=== PATIENT | male | born 1960 | race Caucasian/White ===

== ENCOUNTER 2023-02-25 16:32 | Emergency (ER) | payer MEDICARE, MEDICAID, SELFPAY ==
--- NOTE | ~2023-02-25 | CT_ITS ---
EXAMINATION: CT CERVICAL SPINE WITHOUT CONTRAST CLINICAL INFORMATION: Neck trauma. COMPARISON: None available. TECHNIQUE: 3 minutes thin axial and reformatted 2 mm thin sagittal coronal images of cervical spine were obtained without contrast. This CT examination was performed using dose optimization techniques as appropriate, variously including the following: *Automated exposure control *Adjustment of mA and/or kV according to patient size (this includes techniques or standardized protocols for targeted exams where dose is matched to indication/reason for exam; i.e. extremities or head) *Use of iterative reconstruction technique DLP: 367 mGy-cm FINDINGS: On sagittal reconstructed images there is maintained cervical lordosis. The vertebral heights, alignment and disc heights are normal. The craniovertebral junction and C1-C2 alignment is normal. There are subchondral cystic changes at the C1-C2 alignment. The lung apices are clear. The airway is widely patent. Thyroid lobes are symmetrical and normal. No abnormal neck mass or lymphadenopathy seen. There is bilateral common carotid and internal carotid artery calcifications. CT/CT cervical spine wo IV con IMPRESSION: Unremarkable CT cervical spine without any visible fracture or dislocation. Fleischner guidelines were followed.
--- NOTE | ~2023-02-25 | CT_ITS ---
EXAMINATION: CT HEAD WITHOUT CONTRAST CLINICAL INFORMATION: Fall. COMPARISON: None available. TECHNIQUE: Contiguous axial imaging was performed from the skull base to vertex without intravenous administration of contrast. This CT examination was performed using dose optimization techniques as appropriate, variously including the following: *Automated exposure control *Adjustment of mA and/or kV according to patient size (this includes techniques or standardized protocols for targeted exams where dose is matched to indication/reason for exam; i.e. extremities or head) *Use of iterative reconstruction technique DLP: 710 mGy-cm FINDINGS: There is no acute intra-axial, extra-axial bleed, masses or midline shift. There is no acute infarction evolution. There is no edema. There is a small lacunar infarct left basal ganglia of unknown age. The asher to white matter difference is maintained normal. Lateral ventricles are symmetrical in size and configuration without enlargement. Bone windows reveal no calvarial abnormality. There is extracranial extensive vascular calcifications. There is no scalp soft tissue abnormality either. Bilateral paranasal sinuses and mastoid air cells are well-aerated. CT/CT head/brain wo IV con IMPRESSION: 1. No acute intracranial process seen. 2. Small lacunar infarct left basal ganglia of unknown age.
[2023-02-25 16:35] VITALS: BP 185/59; PULSE 72; RESP 18; TEMP 36.7; O2SAT 97; BMI 26.7
--- NOTE | 2023-02-25 16:35 | ED.GENADULT ---
HPI - General Adult General Chief complaint: Wound/Laceration Stated complaint: hole under chin due to fall, bleeding Time Seen by Provider: 02/25/23 17:15 Source: patient Mode of arrival: ambulatory Limitations: no limitations History of Present Illness HPI narrative: 62 yo male with PMH of HTN, HLD, PAD is on aspirin tripped and fell striking chin on marble no LOC able to get up without issue. Has some mild neck pain. Has laceration under chin. Tdap is within last 5 years MD complaint: chin injury Onset (ago): hour(s) (1) Location: head (chin) Radiation: non-radiation Severity: mild Quality: aching Pain Consistency: constant Relieving factors: none Exacerbating factors: other (touching laceration) Associated symptoms: denies other symptoms Treatments prior to arrival: other (bandage) Related Data Allergies Allergy/AdvReac Type Severity Reaction Status Date / Time No Known Allergies Allergy Verified 02/25/23 16:35 Review of Systems Review of Systems: Constitutional : No Fever, No Chills, Cardiovascular : No Chest Pain, No SOB Respiratory : No Dyspnea Gastrointestinal : No abdominal pain Musculoskeletal : No Joint Swelling Skin : No rash, positive skin laceration Neuro : No Weakness, No Numbness All other systems reviewed and are negative [facility] Past Medical History Attestation statement: The following information was validated with the patient. Medical History (Updated 02/25/23 @ 18:09 by Joselin Floyd DO) PAD (peripheral artery disease) Hyperlipidemia HTN (hypertension) Social History Social History (Updated 02/25/23 @ 17:33 by Joselin Floyd DO) Patient Tobacco Use Status: Tobacco use Unknown Advance Directives: No Advance Directives Information Provided: No Physical Exam ED Vital Signs: Vital Signs - 24 hr 02/25/23 16:35 Temperature 98.0 F Pulse Rate 72 Respiratory Rate 18 Blood Pressure 185/59 H Pulse Oximetry 97 Oxygen Delivery Method Room Air BMI result Body Mass Index 26.7 Appearance: Alert. Oriented X3. No acute distress. Eyes: Pupils equal, round and reactive to light. ENT: Pharynx normal. Chin 4cm linear superficial laceration along joe line Neck: Normal inspection. Neck supple. CVS: Normal heart rate and rhythm. Pulses normal. Respiratory: No respiratory distress. Breath sounds normal. Abdomen: Soft and nontender. Skin: Skin warm and dry. Normal skin color. Normal skin turgor. Extremities: No lower extremity edema. No calf ttp Neuro: Oriented X 3. No motor deficit. No sensory deficit. Course Course Course Narrative: RME- 62 year old male presents for evaluation of a laceration to his chin after falling while tabling out the trash. No LOC or antiocagualtion. He does complain of a headache. Plan for CT head and laceration repair. he is UTD on Tetanus Medications Administered Discontinued Medications Generic Name Dose Route Start Last Admin Trade Name Elder PRN Reason Stop Dose Admin Lidocaine HCl 5 ml 02/25/23 17:22 02/25/23 17:37 Lidocaine Hcl 1 % Mpf 5 Ml Vial SUBCUT 02/25/23 17:23 5 ml ONCE ONE Administration Procedures Laceration Laceration 1: Site: face (chin) Size (cm): 4 Description: linear Depth: simple, single layer Local Anesthetic: lidocaine 1% Amount of anesthesia used (mL): 3 Pre-repair: wound explored, irrigated extensively and deep structures intact Skin layer closed with: nylon Size (cm): 5-0 Number of sutures: 4 Technique: simple, interrupted Medical Decision Making Medical Decision Making MDM Narrative: 62 yo male with PMH of HTN, HLD, PAD is on aspirin here with c/o chin laceration s/p mechanical fall given mechanism CT head and cervical spine ordered will need sutures for chin laceration. He is GCS 15 at this time. No other injury reported. Differential Diagnosis Differential Diagnoses: The differential diagnosis associated with the presentation includes head and neck trauma, laceration Admission/Observation Consideration of admission/observation: Escalation of care including admission/observation considered at baseline, stable for DC GCS 15 Independent Interpretation I performed an independent interpretation of an: CT Scan (no trauma seen) Radiology Impression Discussion of test interpretation with radiology: I have reviewed the radiologist's reading. Independent Historian Clinical information obtained from an independent historian. History obtained from or confirmed by: Other (sister) External Record Review External record reviewed: Outpatient record Discharge Plan Discharge Clinical Impression: Laceration Patient Disposition: Home, Self-Care Instructions: Facial Laceration (ED) Additional Instructions: 4 sutures out in 7 days. okay to shower - monitor for redness, yellow drainage, fevers or signs of infection CT head and cervical spine no acute trauma return for confusion, severe headaches, vomiting.
[2023-02-25] MEDS: Lidocaine HCl 1 % MPF 5 ML VIAL SUBCUT (17:37)
--- NOTE | 2023-02-25 19:07 | PC.NURSE ---
Md at bedside to suture pt, supplies provided.
== END 2023-02-25 19:08 | disposition home or self-care (01) ==
PROVIDERS: Emergency Provider Emergency Medicine; PCP Family Medicine
DX: S01.81XA Laceration without foreign body of other part of head, initial encounter (principal); W18.30XA Fall on same level, unspecified, initial encounter; Y93.9 Activity, unspecified; Y92.9 Unspecified place or not applicable; Y99.9 Unspecified external cause status
CPT/HCPCS: 12013; 70450; 72125; 99284

== ENCOUNTER 2023-03-21 10:31 | Outpatient (REF) | payer MEDICARE, MEDICAID, SELFPAY ==
[2023-03-21 10:52] VITALS: BMI 26.5
[2023-03-21 10:54] VITALS: BP 131/61; PULSE 71; RESP 17; TEMP 36.3; O2SAT 100
== END 2023-03-21 10:32 | disposition home or self-care (01) ==
LOC: HO.MS 10:31
PROVIDERS: Visit Provider Ophthalmology
PROC: (CPT 66821; principal; 2023-03-21 12:40)
DX: H26.491 Other secondary cataract, right eye (principal)
CPT/HCPCS: 66821